=== PATIENT | female | born 2005 | race Caucasian/White ===

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

== ENCOUNTER 2023-10-15 18:18 | Emergency (ER) | payer OTHER, SELFPAY ==
[2023-10-15 18:24] VITALS: BP 120/75; PULSE 82; RESP 16; TEMP 36.3; O2SAT 100; BMI 34.0
--- NOTE | 2023-10-15 19:20 | ED.HA ---
HPI - Headache General Chief Complaint: Headache Stated Complaint: migraine, nausea; hit head on Wednesday Time Seen by Provider: 10/15/23 18:31 History of Present Illness HPI Narrative: 17-year-old female presents for headache, nausea for 5 days. Earlier in the week she was playing around with her boyfriend. She states that she was jumping on the bed while he lifted his knee and he accidentally hit her in the right jehovah's witness. At that time patient did not lose consciousness, she was not on any blood thinners. She was not vomited or had change in behavior, confirmed by boyfriend at bedside. She has been taking ibuprofen at home for headache with minimal relief. 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 Patient states that she went to urgent care yesterday, but was told that they could not do anything for her and referred her to the ER. Related Data Home Medications Medication Instructions Recorded Confirmed No Known Home Medications 10/14/23 10/14/23 Allergies Allergy/AdvReac Type Severity Reaction Status Date / Time No Known Drug Allergies Allergy Verified 10/14/23 16:39 Patient History Medical History Mixed anxiety and depressive disorder Recurrent UTI Self-harming behavior Disturbance of anxiety and fearfulness specific to childhood and adolescence Social History Smoking Status: Never smoker Smoking Status: Never smoker alcohol intake frequency: 0-2 drinks per day Substance Use Type: does not use Exam Initial Vital Signs Initial Vital Signs: Vital Signs Temperature 97.4 F L 10/15/23 18:24 Pulse Rate 82 10/15/23 18:24 Respiratory Rate 16 10/15/23 18:24 Blood Pressure 120/75 10/15/23 18:24 Pulse Oximetry 100 10/15/23 18:24 Oxygen Delivery Method Room Air 10/15/23 18:24 Const: Awake, alert, no acute distress, nontoxic appearing HEENT: PERRLA, EOMI, TM normal bilaterally, no raccoon eyes, no hemotympanum Skin: Warm, Dry, intact, no rashes Neuro: AO x3, CN II-XII grossly intact, moves all extremities Course Vital Signs Vital signs: Vital Signs - 8 hr 10/15/23 18:24 Temperature 97.4 F L Pulse Rate 82 Respiratory Rate 16 Blood Pressure 120/75 Pulse Oximetry 100 Oxygen Delivery Method Room Air MDM - Headache Differential Diagnosis Differential diagnosis: Likely migraine, tension headache and headache MDM Narrative Medical decision making narrative: Persistent headache after head injury 5 days ago. Patient neurologically intact, no obvious signs of trauma, and at 5 days post incident I have very low suspicion for serious traumatic injury. Patient offered headache medications in the emergency department, she declined. I recommended patient follow up post concussion protocol with minimizing screen time, fluids, rest, avoidance of bright lights and loud noises. Patient requested a note for work, which was provided. Discharge Plan Departure Patient Disposition: Home Clinical Impression: Postconcussion syndrome Instructions: DI for Closed Head Injury Activity Restrictions/Additional Instructions: You can take Tylenol and ibuprofen as needed for headache. Make sure that you rest your eyes from screens and bright lights, avoid loud noises. Drink plenty of fluids and get rest. Prescriptions: No Action No Known Home Medications Referrals: Thierry Ortiz MD [Primary Care Provider] - Stand Alone Forms: Patient Portal/API, Work Release Note
[2023-10-15 19:26] VITALS: BP 106/58; PULSE 82; RESP 18; O2SAT 99
== END 2023-10-15 19:30 | disposition home or self-care (01) ==
PROVIDERS: Emergency Provider Emergency Medicine; PCP Family Medicine
DX: G44.319 Acute post-traumatic headache, not intractable (principal); F07.81 Postconcussional syndrome; R11.10 Vomiting, unspecified
CPT/HCPCS: 99281

== ENCOUNTER → 2024-01-03 17:00 | Outpatient (CLI) | payer OTHER, SELFPAY | PROVIDERS: PCP Family Medicine; Visit Provider Student in an Organized Health Care Education/Training Program | DX: R30.0 Dysuria (principal) | CPT/HCPCS: 87077; 87086; 87210 ==

== ENCOUNTER → 2024-01-17 16:25 | Outpatient (CLI) | payer OTHER, SELFPAY | PROVIDERS: PCP Family Medicine; Visit Provider Nurse Practitioner Family | DX: R30.0 Dysuria (principal); N30.01 Acute cystitis with hematuria | CPT/HCPCS: 87077; 87086; 87186; 87210 ==

== ENCOUNTER → 2024-01-25 17:31 | Outpatient (CLI) | payer OTHER, SELFPAY | PROVIDERS: PCP Family Medicine; Visit Provider Physician Assistant Surgical | DX: R30.0 Dysuria (principal); R31.9 Hematuria, unspecified; R10.2 Pelvic and perineal pain | CPT/HCPCS: 87086 ==